=== PATIENT | female | born 1995 | race Caucasian/White ===

== ENCOUNTER 2017-01-14 14:20 | Emergency (ER) | payer MEDICAID ==
[2017-01-14 14:37] VITALS: BP 133/82; PULSE 89; RESP 18; TEMP 98.1; O2SAT 97
--- NOTE | 2017-01-14 15:13 | UCPHY ---
H & P Time Seen by Provider: 01/14/17 15:05 Patient Type: New HPI/ROS: 21-year-old female presents complaining of left breast lump for that she has noticed for about 1 week, no nipple discharge, no fevers no chills. Review of systems General no fever no chills no weakness HEENT no eye pain no eye discharge. No eye redness, no sore throat Respiratory no cough, no shortness of breath Cardiac no chest pain, no peripheral edema GI no abdominal pain, no diarrhea, no constipation, no nausea, no vomiting no flank pain, no hematuria, no dysuria Musculoskeletal no myalgias, no joint pain Heme no easy bruising, no easy bleeding Endo no polyuria, no polydipsia Skin no rashes, no pruritus Neuro no syncope, no dizziness, no headaches Psych is no suicidal ideation, no homicidal ideation Past Medical/Surgical History: Noncontributory Social History: No alcohol or drug use Smoking Status: Never smoked Physical Exam: 21-year-old female alert and oriented no acute distress nontoxic appearance afebrile Atraumatic normocephalic Neck no JVD Lungs clear to auscultation, no respiratory distress Heart regular rate and rhythm Extremities no cyanosis clubbing edema Breast exam-left breast-no nipple discharge no external erythema or ecchymosis Palpable mass approximately 2 x 2 cm at 9 o'clock, mobile, nontender, do not appreciate any fluctuance Constitutional: Initial Vital Signs Temperature (C) 36.7 C 01/14/17 14:34 Heart Rate 89 01/14/17 14:34 Respiratory Rate 18 01/14/17 14:34 Blood Pressure 133/82 H 01/14/17 14:34 O2 Sat (%) 97 01/14/17 14:34 O2 Delivery Mode Room Air Allergies/Adverse Reactions: No Known Allergies Allergy (Unverified 11/03/10 11:15) Medical Decision Making ED Course/Re-evaluation: Patient seen and evaluated for left breast mass Differential diagnosis considered Breast mass-malignancy, breast mass-benign, breast mass-abscess Impression/plan Does not appear to be an abscess Breast mass will need further evaluation with mammogram and likely needle biopsy Patient advised follow-up with her primary care physician to have this arranged Departure - Departure Disposition: Home, Routine, Self-Care Clinical Impression: Breast lump in female Condition: Good Instructions: Breast Mass (ED) Referrals: LALITA VILLALOBOS,. [Primary Care Provider] - As per Instructions - PQRS PQRS Measurement: na
== END 2017-01-14 15:20 | disposition home or self-care (01) ==
LOC: CED 14:20
DX: N63 Unspecified lump in breast (principal)
CPT/HCPCS: 99203-PO; G0463-PO